=== PATIENT | female | born 1960 | race Caucasian/White ===

== ENCOUNTER 2025-03-24 00:59 | Day surgery (SDC) | payer MEDICARE, OTHER, SELFPAY ==
[2025-03-23 13:28] VITALS: BP 198/102
[2025-03-23 13:55] LABS: Hematocrit 46.0 % (37.0-47.0); Hemoglobin 14.6 g/dL (12.0-16.0); Mean Corp Hgb Conc. 31.7 g/dL (33.0-37.0); Mean Corpuscular Volume 89.8 fL (81.0-99.0); Nucleated Red Blood Cells % 0 %; Platelet Count 177 10^3/uL (130-400); Red Cell Dist. Width 14.6 % (11.5-14.5)
[2025-03-23 14:05] LABS: Urine Character Clear (Clear)
[2025-03-23 14:08] LABS: AST (SGOT) 618 U/L (14-36); Albumin 4.6 g/dl (3.5-5.0); Alkaline Phosphatase 139 U/L (38-126); Blood Urea Nitrogen 15 mg/dl (7-17); Calcium 9.9 mg/dl (8.4-10.2); Carbon Dioxide 28 mmol/L (22-30); Chloride 104 mmol/L (98-107); Glucose 114 mg/dl (70-99); Lipase 42 U/L (23-300); Potassium 4.2 mmol/L (3.5-5.1); Sodium 139 mmol/L (135-145); Total Protein 7.5 g/dl (6.3-8.2); eGFR > 60.00
[2025-03-23 14:18] LABS: ALT (SGPT) 845 U/L (0-35)
[2025-03-23 14:27] LABS: Urine Urothelial Cell 0-2 /LPF (FEW)
--- NOTE | 2025-03-23 16:02 | ED.GENMED ---
History of Present Illness
General
Chief Complaint: Abdominal Symptoms
Source: patient
Exam Limitations: none
Time Seen by Provider: 03/23/25 15:48
Nursing documentation reviewed up to this point in time: agreed with
History of Present Illness
History of Present Illness:
64 yo female w h/o C section, Aorta hematoma, L Ureterectomy 2004 presents for R flank pain starting 2 days ago radiates from flank around to the right abdomen, constant 10/10 until it suddenly relieved to now 3/10 yesterday a.m. Last evening fever
102 and has felt nauseous but no vomiting. Shes been nauseous for past month and saw PCP today and sent here as she had blood in her urine.
Past History
Past History
ED Past Medical History: Other (Hematoma aorta)
ED Past Surgical History:
Review of Systems
Review of Systems
Allergies reviewed?: Yes
All Other Systems: ROS reviewed and negative except as documented in HPI and ROS
Constitutional: Denies fever
Respiratory: Denies trouble breathing
Cardiac: Denies chest pain
ABD/GI: Reports abdominal pain and nausea; Denies vomiting or diarrhea
: Denies dysuria
Musculoskeletal: Reports no symptoms
Skin: Reports no symptoms
Neurological: Reports no symptoms
Phy Exam
Physical Exam
Physical Exam:
GENERAL: No acute distress. A&Ox3.
CONSTITUTIONAL: Afebrile.
EYES: clear, conjunctivae normal
ENMT: moist mucus membranes, Pharynx nl
RESPIRATORY: Regular respirations, nonlabored, lungs clear.
CARDIOVASCULAR: Regular rate and rhythm, no murmurs, no rubs.
GI: Soft, generally tender, more so in the right abdomen obese,, normal BS
MUSCULOSKELETAL: Moves with ease. Well perfused.
SKIN: Warm, dry, pink
PSYCH: Normal mood and affect. Well kept, interactive and appropriate
NEUROLOGIC: Awake, alert and oriented. No focal neurological deficits
Sepsis
Sepsis Screening
Sepsis Assessment: Sepsis Ruled Out
Sepsis Screen
Sepsis Screen: Sepsis Ruled Out
Date: 03/23/25
Time: 22:55
Course
Orders/Labs/Results
Orders:
Orders
03/23/25 13:44
Complete Blood Count/With Diff Urgent
Comprehensive Metabolic Panel Urgent
Lipase Urgent
Urinalysis Reflex To Culture Urgent
Date Specimen was Collected: 03/23/25
Time Specimen was Collected: 13:32
Urine Microscopic Reflex Cult Urgent
Urine Culture Urgent
BR[facility]ICK Source: U
Specimen Description:
Date Specimen was Collected: 03/23/25
Time Specimen was Collected: 13:32
03/23/25 16:02
CT Abd/pel Without Iv Or Oral Urgent
Comment:
Reason For Exam: R flank pain, hematuria
03/23/25 17:39
US Abdomen Complete/Upper Urgent
Comment:
Reason For Exam: Abdominal pain, elevated liver enzymes
03/23/25 20:40
Piperacillin/Tazo 3.375 Gram [Zosyn] 3.375 gram in 50 ml IV NOW
Abnormal Lab Results
03/23/25
13:44
MCHC 31.7 L g/dL
(33.0-37.0)
RDW 14.6 H %
(11.5-14.5)
Abs Immat Gran (auto) 0.1 H 10^3/uL
(0-0.05)
Immature Gran % 1.0 H %
(0-0.5)
Glucose 114 H mg/dl
(70-99)
AST 618 H* U/L
(14-36)
ALT 845 H* U/L
(0-35)
Alkaline Phosphatase 139 H U/L
(38-126)
Urine Ketones 3+ A
(Negative)
Ur Occult Blood Reflex 2+ A
(Negative)
Urine Nitrite (Reflex) Positive A
(Negative)
Urine Bilirubin 1+ A
(Negative)
Urine Urobilinogen 2+ A
(Neg - 1+)
Leukocyte Esterase Rfl 1+ A
(Negative)
Urine RBC 3-6 A /HPF
(0-2)
Urine Bacteria (Reflex) Few A
(Negative)
Urine Albumin (Reflex) 3+ A
(Neg - Trace)
03/23/25 13:44
03/23/25 13:44
Vital Signs
Initial and Last Documented VS:
Initial Vital Signs
Temp Pulse Resp BP Pulse Ox
99.4 F 111 20 198/102 98
03/23/25 13:28 03/23/25 13:28 03/23/25 13:28 03/23/25 13:28 03/23/25 13:28
Last Documented Vital Signs
Temp Pulse Resp BP Pulse Ox
99.4 F 111 20 156/94 94
03/23/25 13:28 03/23/25 13:28 03/23/25 13:28 03/23/25 17:19 03/23/25 17:26
MDM/Problems Addressed
Differential Diagnosis Includes:
UTI, kidney stone, pyelonephritis
Acetaminophen overuse
Cholecystitis, cholelithiasis
MDM/Problems Addressed:
64 yo female w h/o C section, Aorta hematoma, L Ureterectomy 2004 presents for R flank pain starting 2 days ago radiates from flank around to the right abdomen, constant 10/10 until it suddenly relieved to now 3/10 yesterday a.m. Last evening fever
102 and has felt nauseous but no vomiting. Shes been nauseous for past month and saw PCP today and sent here as she had blood in her urine.
She typically take Fiorecet 2-4 tablets daily (has 300 mg acetaminophen each tab) and Pamprin (500 mg acetaminophen each tab) 2-4 tablets daily for 'months' for her migraines and it helps.
CBC: Normal
CMP: Transaminitis
U/A: No WBCs, +Nitrites and +1 leukocytes, 3+ albumin
She typically take Fiorecet 2-4 tablets daily (has 300 mg acetaminophen each tab) and Pamprin (500 mg acetaminophen each tab) 2-4 tablets daily for 'months' for her migraines and it helps.
CT abdomen pelvis with IV only contrast radiology report read: IMPRESSION:
Diffuse atrophy of the left kidney. Overall, preservation of most of right renal parenchymal thickness, with a small focal scar involving the periphery of the upper to mid right kidney.
No evidence for urinary tract calculi.
Although an unenhanced examination, the gallbladder appears distended. Possible gallbladder wall thickening and/or pericholecystic edema. Findings raise concern for acute cholecystitis and please correlate clinically. As warranted, further
evaluation with abdominal ultrasound could be performed.
Hepatomegaly with diffuse fatty infiltration the liver.
Splenomegaly.
Right ovarian cystic mass with measurements slightly larger than previous pelvic ultrasound in 2018. A follow-up pelvic ultrasound is recommended.
8:15 p.m.
US radiology report reviewed: IMPRESSION:
Sonographic features suspicious for acute cholecystitis. Negative sonographic Hunt sign, though pain medication status is unknown. Clinical correlation recommended. No bile duct dilatation.
Hepatosplenomegaly. Fatty infiltration of liver.
General surgeon Dr. Mi consulted, requests admit to House provider, antibiotics, NPO p midnight
Samuel provider notified of admission
*Pulse Oximetry
SaO2: 98
Oxygen Mode of Delivery: Room air
Patient hypoxic: no
*Critical Care Note
Total Time (30-74mins, 75-104mins- exclusive of procedures): Not Applicable
ED Attending Note
-
Portions of this chart may have been created with voice recognition software.� Occasional wrong word or��sound alike� substitutions may have occurred due to the inherent limitations of voice recognition software.
Discharge Plan
Departure
Patient Disposition: Admit
Date of Disposition: 03/23/25
Time of Disposition: 20:26
Admit to: Med/Surg
Presentation/result/management discussed w/ accepting MD/DO: Shmuel
Condition: Fair
Discharge Problem:
Acute cholecystitis
Prescriptions:
No Action
ondansetron HCl [Zofran] 4 mg Tablet
4 mg PO Q6HPRN PRN (Reason: nausea)
Theragen Tablet
1 tab PO DAILY
ehdtnqylxa-hhipxxzzsobmz-hpbm 50-325-40 mg tablet
1 tab PO QIDPRN PRN (Reason: migraines)
potassium 99 mg Tablet
99 mg PO DAILY
calcium carbonate [Calcium 500] 500 mg calcium (1,250 mg) Tablet
500 mg PO DAILY
ascorbic acid (vitamin C) [Vitamin C] 500 mg Tablet
500 mg PO DAILY
valsartan 320 mg Tablet
320 mg PO DAILY
oxycodone 10 mg Tablet
10 mg PO Q6HPRN PRN (Reason: severe pains)
Referrals:
NONE,* [Active, Internal Medicine]
Interventions
Interventions:
*Risk Screen - Suicide Last Done: 03/23/25 17:25
*General Assessment Last Done: 03/23/25 17:21
*Neglect/Abuse Screening Last Done: 03/23/25 17:21
*ED- Fall Risk Assessment Last Done: 03/23/25 17:21
*ED COVID-19 Vaccine History Last Done: 03/23/25 17:21
RH-Apcgxp-Bgvhvlechk Assessment Last Done: 03/23/25 17:21
Discharge Date and Time
Print Language: LEBANESE
[2025-03-23 17:19] VITALS: BP 156/94
[2025-03-23 17:20] VITALS: BMI 49.5
[2025-03-23 20:23] VITALS: BP 167/89
[2025-03-23] MEDS: ZOSYN 50 IV (21:30)
[2025-03-24 00:48] VITALS: BP 150/95
--- NOTE | 2025-03-24 00:59 | HPS.HSE ---
Addendum entered and electronically signed by Cuauhtemoc Mi MD 03/24/25 10:39:
Correction: No RUE pain for this patient. this finding was entered in error.
Addendum entered and electronically signed by Cuauhtemoc Mi MD 03/24/25 10:36:
US and CT reviewed. CT shows distended gb with stranbding, US with tiny stones, GBWT and trace PCF.
Addendum entered and electronically signed by Cauuhtemoc Mi MD 03/24/25 10:16:
I saw and examined the patient.
The [facility]'s note was reviewed and I agree with the note.
Comment: Pain intermittently for past 3 days. Mostly c/o RUE pain at this point. US neg for DVT. She thinkgs sleeping on the arm awkwardly led to the pain, heating pad helps. In addition, ongoing RUQ/epigastric pain, improved with meds. Began
Saturday as back pain then began wrapping around the right flank. Denies changes in stool, reports dark orange urine she attributes to dehydration. Has had this pain before, about 1x monthly for the past few months. mild-mod ttp on exam to RUQ and
epigastrium. Tmax 99.4F. No leukocytosis. LFTs elevated. OCTOR for lap vs robo CCY with cholang. IV abx. NPO. DVT ppx.
Original Note:
Family Physician
-
Family Physician: Panchito Cisneros
Chief Complaint
-
Abdominal symptoms
History of Present Illness
Patient is a 64 yo female with a past medication history significant for C section, Aorta hematoma, L Ureterectomy 2004, who presents to the emergency department for right flank and right abdominal pain. Patient reported that she started to have a
migraine that started on Saturday evening around 8 pm, she took Zofran and then migraine medication with no improvement. Around 8:30 pm patient reported that pain was severe, and radiated from right flank around to the right abdomen, constant 10/10.
Patient stated she took 'a handful of pain medication at that time' which she stated included: Fioricet 2 tablets, two Oxycodone 10 mg, nine Ibuprofen 200 mg, 8 Tyler Aspirin, and 5 Pamprin, with no relief. She stated she took additional medication
throughout the night which included 3 more Fioricet and 3 more Oxycodone. She stated took another 'handful of medicine' around 3:30 am Saturday which again included: Fioricet 3 tablets, three Oxycodone 10 mg, nine Ibuprofen 200 mg, 9 Tyler Aspirin,
and 5 Pamprin. At 6 am Saturday morning the pain was suddenly relieved to now 3/10. Last evening fever 102 and has felt nauseous but no vomiting. Shes been nauseous for past month and saw PCP today and sent here as she had blood in her urine. The
patient denies any diarrhea, chest pain, or recent contact with sick individuals.
In the emergency department CBC unremarkable, CMP significant for elevated AST 618, ALT 845, alk phos 139. UA unreliable, appears to be poor specimen/contaminated.
Vital signs stable, afebrile.
Abdomen U/S showed: Sonographic features suspicious for acute cholecystitis. Negative sonographic Hunt sign, though pain medication status is unknown. Clinical correlation recommended. No bile duct dilatation. Hepatosplenomegaly. Fatty
infiltration of liver.
Abdomen/Pelvis CT showed: The gallbladder appears distended. Possible gallbladder wall thickening and/or pericholecystic edema. Findings raise concern for acute cholecystitis and please correlate clinically. Other incidental findings as noted, see
full report.
Patient received IV antibiotics, Zosyn 3.375 g IV x 1 dose in the emergency department.
ED provider, NORMAN Ramirez, reviewed with General Surgery, Dr. Mi, who is accepting the patient to his service. Plan: NPO at midnight, IV antibiotics, IV fluids, pain management and antiemetics.
Medical History
Past Medical History
Past Medical History: Reports HTN and Other (Hematoma ascending aorta, per patient believes healed, sealed itself)
Past Surgical History: Reports (1982), Tonsilectomy (1976) and Urological
Social History
Tobacco: Non-smoker
Alcohol: Occasional
Drug: None
Personal:
Living: With Family
Family History
Family History: Sudden (Patient states that father, mother and two sisters all from 'Blown out aorta')
Allergies / Home Medications
Allergies reflects when Allergies were last updated in [employer].
Home Medications with original date entered in [employer]
Allergy/Medication List:
Patient Allergies
Allergy/AdvReac Type Severity Reaction Status Date / Time
nitrofurantoin (From Allergy Unknown Unknown Verified 03/23/25 13:32
Macrobid)
Home Medications
�Medication �Instructions �Recorded
ascorbic acid (vitamin C) 500 mg 500 mg PO DAILY 03/23/25
tablet (Vitamin C)
lakhyyyjrq-ztolnguvcwexh-pupqdeoy 1 tab PO QIDPRN PRN migraines 03/23/25
50 mg-325 mg-40 mg tablet
calcium carbonate 500 mg PO DAILY 03/23/25
ondansetron HCl 4 mg tablet 4 mg PO Q6HPRN PRN nausea 03/23/25
oxycodone 10 mg tablet 10 mg PO Q6HPRN PRN severe pains 03/23/25
potassium 99 mg tablet 99 mg PO DAILY 03/23/25
therapeutic multivitamin 1 tab PO DAILY 03/23/25
valsartan 320 mg tablet 320 mg PO DAILY 03/23/25
Review of Systems
-
History Source: Patient
Constitutional: Reports Fever and Fatigue
EENT: Reports No Symptoms
Respiratory: Reports No Symptoms
Cardiac: Reports No Symptoms
Abdomen/GI: Reports Abdominal Pain (right flank radiating to right lower abdomen) and Nausea
: Reports No Symptoms
Musculoskeletal: Reports No Symptoms
Skin: Reports No Symptoms
Neurological: Reports No Symptoms
Endocrine: Reports No Symptoms
Psych: Reports No Symptoms
Physical Exam
Vital Signs
Vital Signs
Temp Pulse Resp BP Pulse Ox
99.4 F 111 20 150/95 94
03/23/25 13:28 03/23/25 13:28 03/23/25 13:28 03/24/25 00:48 03/23/25 17:26
Physical Exam
General: No Apparent Distress, Comfortable, Conversant and Pain (right abdominal pain, rates at 2 out of 10 after pain medications)
HEENT: NormoCephalic, Moist mucous membranes and PERRLA
Respiratory: Clear and Non Labored Respirations
Cardiac: S1/S2 and Regular Rhythm
GI: Soft and Tender (t/o lower abdomen w/palpation)
Musculoskeletal: No Edema
Skin: Warm and Dry; No Jaundice
Neuro: Awake, Alert, Oriented and Cranial Nerves Intact
Psych: Calm and Intact Judgment/Insight
Laboratory Results
-
03/23/25 13:44
03/23/25 13:44
Laboratory Results
Total Bilirubin 0.8 mg/dl (0.2-1.3) 03/23/25 13:44
AST 618 U/L (14-36) H* 03/23/25 13:44
ALT 845 U/L (0-35) H* 03/23/25 13:44
Alkaline Phosphatase 139 U/L (38-126) H 03/23/25 13:44
Lipase 42 U/L (23-300) 03/23/25 13:44
Data Reviewed
-
CT Scan: Report Reviewed by me
Ultrasound: Report Reviewed by me
Lab Data: Labs Reviewed by me
Impression/Plan
-
IMPRESSION:
Patient is a 64 yo female with a past medication history significant for C section, Aorta hematoma, L Ureterectomy 2004, who presents to the emergency department for right flank and right abdominal pain.
PLAN:
Acute cholecystitis
-Admit to General Surgery, Med Surg under the service of Dr. Mi
-Abdomen U/S showed: Sonographic features suspicious for acute cholecystitis. Negative sonographic Hunt sign, though pain medication status is unknown. Clinical correlation recommended. No bile duct dilatation. Hepatosplenomegaly. Fatty
infiltration of liver.
-Abdomen/Pelvis CT showed: The gallbladder appears distended. Possible gallbladder wall thickening and/or pericholecystic edema. Findings raise concern for acute cholecystitis and please correlate clinically. Other incidental findings as noted, see
full report.
-NPO until seen by surgery, IV fluids NSS @ 75 mls/hr
-IV antibiotics: Continued Zosyn 3.375 mg Q6H.
-Pain medication: Dilaudid
-Antiemetics: Zofran
Hypertension
-Continue home medications: Valsartan 320 mg PO daily
Elevated LFT's
-Repeat CMP, consider GI consult if remain elevated
DVT prophylaxis: SCD's
Code status: Full code
[2025-03-24 02:26] VITALS: BP 166/96
[2025-03-24 02:27] VITALS: BMI 48.4
[2025-03-24] MEDS: ZOFRAN 4 MG IV ×3 (02:54→20:24)
[2025-03-24] MEDS: DILAUDID 1 MG IV (02:58)
[2025-03-24] MEDS: LR 1000 IV ×2 (02:58→18:37)
[2025-03-24 06:44] LABS: Hematocrit 42.0 % (37.0-47.0); Hemoglobin 13.3 g/dL (12.0-16.0); Mean Corp Hgb Conc. 31.7 g/dL (33.0-37.0); Mean Corpuscular Volume 90.1 fL (81.0-99.0); Platelet Count 164 10^3/uL (130-400); Red Cell Dist. Width 14.7 % (11.5-14.5)
[2025-03-24 06:52] LABS: INR 0.99; PT 13.6 Sec (11.4-14.6)
[2025-03-24 07:14] LABS: ALT (SGPT) 549 U/L (0-35); AST (SGOT) 266 U/L (14-36); Albumin 4.0 g/dl (3.5-5.0); Alkaline Phosphatase 106 U/L (38-126); Blood Urea Nitrogen 17 mg/dl (7-17); Calcium 9.2 mg/dl (8.4-10.2); Carbon Dioxide 25 mmol/L (22-30); Chloride 107 mmol/L (98-107); Estimated Creatinine Clearance 102 ml/min; Glucose 106 mg/dl (70-99); Potassium 4.0 mmol/L (3.5-5.1); Sodium 141 mmol/L (135-145); Total Protein 6.7 g/dl (6.3-8.2); eGFR > 60.00
[2025-03-24 07:25] VITALS: BP 137/81
[2025-03-24] MEDS: DILAUDID 0.5 MG IV ×2 (09:20→20:24)
--- NOTE | 2025-03-24 11:27 | CM ---
Reviewed the chart notes and spoke with the patient at the bedside. The patient anticipates going to the OR this afternoon for lap nancy. The patient resides with her spouse in a two story home with one step to enter. The patient has a rolling
walker and shower stool. The patient reports no VN or SNF in the past. The patient confirmed her pharmacy of choice is [facility]. CM continues to be available to patient/family and is monitoring medical plan for needs at discharge.
Plan: Discharge to home when medically stable. No needs anticipated at this time.
--- NOTE | 2025-03-24 12:56 | PTCARENOTE ---
pt provided this RN with a list of medications she can't tolerate. provided medication list added to adverse reactions as instructed by pharmacist.
[2025-03-24] MEDS: ZOSYN 50 IV ×3 (13:21→23:21)
[2025-03-24 15:20] VITALS: BP 144/91
--- NOTE | 2025-03-24 17:10 | PTCARENOTE ---
received message from surgeon-OR cancelled for today and rescheduled for AM. pt made aware and instructed clear liquids allowed until MN and then NPO for OR in am. pt verbalized understanding.
[2025-03-24] MEDS: LOVENOX 40 MG SC (18:36)
[2025-03-24] MEDS: DIOVAN PO (21:11)
[2025-03-24 23:04] VITALS: BP 156/89
[2025-03-24] MEDS: DIOVAN 320 MG PO (23:39)
[2025-03-25] VITALS (15 sets, daily range): BP systolic 117–172; BP diastolic 61–98
[2025-03-25] MEDS: ZOSYN 50 IV ×4 (05:13→23:43)
[2025-03-25] MEDS: DILAUDID 1 MG IV ×2 (06:35→16:20)
[2025-03-25] MEDS: ZOFRAN 4 MG IV ×2 (06:40→22:46)
--- NOTE | 2025-03-25 11:30 | PTCARENOTE ---
Pt was prepared for transport to go to the pre operative suite. In the hallway, pt noticed the transporter had a light scented body spray on. Pt had what appeared to be a panic attack. Pt started breathing heavy and started to cry. This nurse was
able to talk pt through slow, deep breaths, and able to calm Pt down within minutes. Pt's pulse ox remained at 96%RA. This nurse took over the transport to the Preop area. Pt remained calm with adequate consistent breathing on room air.
--- NOTE | 2025-03-25 11:46 | W.SUR.PREOP ---
Pre-Operative Surgical Note
-
I have examined this patient prior to the performance of the scheduled procedure.
The patient's condition is unchanged from the time of the current History and
Physical and the patient is able to undergo the scheduled procedure.
--- NOTE | 2025-03-25 13:12 | CM ---
Patient currently in the Operating Room; Case Management will monitor for discharge needs and support accordingly
--- NOTE | 2025-03-25 14:09 | W.IMMPOSTOP ---
Addendum entered and electronically signed by Mina Ordaz MD 03/25/25 14:26:
#[id number]
Original Note:
Surgical Immed Post Op Note
-
Primary Surgeon: Mina Ordaz MD
Assisting Surgeon: Celestina Wolf PA-C
Pre-op Diagnosis: Acute calculus cholecystitis
Post-op Diagnosis: Acute calculus cholecystitis
Procedure Performed: Laparoscopic cholecystectomy with intraoperative cholangiogram; modifier 22 secondary to morbid obesity with a BMI of 48.4
Anesthesia Type: GETA +0.25% Marcaine with epi
Specimen / Cultures: Gallbladder
Estimated Blood Loss: 8 mL
Complications: None immediate
Operative Findings: Diffuse fatty infiltration of the liver and significant hepatomegaly as well as patient's morbid obesity with BMI 48.4 significantly contributed to increased complexity of surgery lengthening operative time by 50% or more over
typical operative circumstances.
Gallbladder distended, access needle decompression. Thick bile and gravel like stones. Cystic artery anterior branch and posterior branches individually identified and controlled with clips. Intraoperative cholangiogram with initial delay
emptying into the duodenum but no filling defects identified. Cholangiocatheter fed via the cystic duct through common bile duct and passed the ampulla without resistance and repeat cholangiogram without delay.
Cystic duct divided with Endo RAYO 30 mm mehta stapler.
The assistance of Celestina Wolf PA-C was required due to the complexity of the procedure. During the procedure Celestina Wolf PA-C assisted with port placement, gallbladder/liver retraction and managing the laparoscope for visualization assistance
with, and closure of the surgical incision sites. I was present for the entirety of the operative procedure.
[2025-03-25] MEDS: DILAUDID 0.25 MG IV ×2 (14:47→15:12)
[2025-03-25] MEDS: COMPAZINE 5 MG IV (14:57)
--- NOTE | 2025-03-25 15:55 | PTCARENOTE ---
Pt received from the PACU via bed. Transport was w/o incident. Pt is Drowsy and easily arousable. Pt reports pain as moderate at this time and denies nausea. Pt's abd with 4 Lap sites and 1 sm. poke site, all well approximated w/ surgical glue. Ice
pack applied to abd as ordered for comfort. Vss, pt is afebrile. Pt and Pt's instructed on plan of care. Both Pt and verbalized understanding of instructions. Call kenney is within reach.
[2025-03-25] MEDS: LR 1000 IV (16:24)
[2025-03-25] MEDS: LOVENOX 40 MG SC (17:37)
[2025-03-25] MEDS: DILAUDID 0.5 MG IV ×2 (20:31→23:44)
[2025-03-25] MEDS: DIOVAN 320 MG PO (21:15)
[2025-03-25] MEDS: BENADRYL 25 MG PO (23:13)
[2025-03-25] MEDS: ROBITUSSIN DM 5 ML PO (23:15)
[2025-03-26 03:52] VITALS: BP 145/79
[2025-03-26] MEDS: ZOSYN 50 IV (05:49)
[2025-03-26] MEDS: DILAUDID 0.5 MG IV (05:49)
[2025-03-26 07:40] VITALS: BP 140/79
--- NOTE | 2025-03-26 10:23 | CM ---
Reviewed the chart notes. Patient's status changed to post surgical recovery. CM continues to be available to patient/family and is monitoring medical plan for needs at discharge.
Plan: Discharge to home when medically stable. No needs anticipated at this time.
[2025-03-26] MEDS: ROXICODONE 10 MG PO (10:26)
--- NOTE | 2025-03-26 10:49 | W.PN.GS2 ---
Today's Communication / Plan
-
DC home
Assessment / Plan
-
Assessment: 64-year-old female POD #1 status post lap nancy with intraoperative cholangiogram for acute calculus cholecystitis and possible passed gallstone/sludge.
AFVSS
Doing well postop
Plan: Stable for discharge home
Postoperative discharge instructions reviewed
Patient has narcotic supply at home for oxycodone but requested alternative for postoperative pain management. Advised that would provide tramadol 50 mg tablets x 10 with no refills.
Subjective Data
-
Date of Service: March 26, 2025
Patient seen and examined. at bedside.
Postoperative incisional pain controlled.
Tolerating dietary advancement, no further nausea. No vomiting
Objective Data
-
Intake and Output
03/25/25 03/26/25 03/27/25
06:59 06:59 06:59
Intake Total 1165 / 1165 730 / 730
Balance 1165 / 1165 730 / 730
Intake:
Oral fluids 240 / 240 480 / 480
IV fluids (Total) 825 / 825 150 / 150
normosol 150 / 150
IV piggybacks 100 / 100 100 / 100
Other:
Number of approximated MODERATE 1 3 2
amounts of urine
Vital Signs
Temp Pulse Resp BP Pulse Ox
98.7 F 96 20 140/79 91
03/26/25 07:40 03/26/25 07:40 03/26/25 07:40 03/26/25 07:40 03/26/25 07:40
Lab Results
03/24/25 06:20
03/24/25 06:20
Calcium 9.2 mg/dl (8.4-10.2) 03/24/25 06:20
Total Bilirubin 0.7 mg/dl (0.2-1.3) 03/24/25 06:20
AST 266 U/L (14-36) H 03/24/25 06:20
ALT 549 U/L (0-35) H* 03/24/25 06:20
Alkaline Phosphatase 106 U/L (38-126) 03/24/25 06:20
Total Protein 6.7 g/dl (6.3-8.2) 03/24/25 06:20
Albumin 4.0 g/dl (3.5-5.0) 03/24/25 06:20
Physical Exam
-
NAD AAO x 3
ABD: Soft, obese, mild tenderness palpation at incision sites.
Incisions with glue dressings and some localized ecchymosis. No hematoma.
--- NOTE | 2025-03-26 10:52 | W.DS.TRANS ---
DC Summary - Real Estate Administrator
-
Discharge Instructions:
Diet As tolerated
Additional Diets Eat small meals at first as distention is common
. If you have loose stools after surgery, follow
a low fat diet.
Activity No strenuous activity
Additional Activity Do not lift over 20lbs for 3-4 weeks after
surgery
Bathing Restrictions OK to Shower
Wound Care Glue at surgical sites typically peels off in 2
to 3 weeks
Instructions:
Stand-Alone Forms:
Changes to Home Medications: No
Discharge Medications:
DC Medications w/original date entered in [employer]
ascorbic acid (vitamin C) 500 mg tablet (Vitamin C) 500 mg PO DAILY 03/23/25
hiribgmpuc-nnqcuiwdsuwut-xialcker 50 mg-325 mg-40 mg tablet 1 tab PO QIDPRN PRN migraines 03/23/25
calcium carbonate 500 mg PO DAILY 03/23/25
ondansetron HCl 4 mg tablet 4 mg PO Q6HPRN PRN nausea 03/23/25
oxycodone 10 mg tablet 10 mg PO Q6HPRN PRN severe pains 03/23/25
potassium 99 mg tablet 99 mg PO DAILY 03/23/25
therapeutic multivitamin 1 tab PO DAILY 03/23/25
valsartan 320 mg tablet 320 mg PO DAILY 03/23/25
acetylcarnitine HCl 250 mg capsule 1,000 mg PO DAILY 03/24/25
berberine chloride 500 mg capsule 1,000 mg PO DAILY 03/24/25
calc 166.6 mg-D3 4.15 mcg-mag ox 83.3 mg-ascorbate calc-K2-min capsule (BoneUp (calcium ascorbate)) 1 cap PO DAILY 03/24/25
lactoferrin 250 mg capsule 250 mg PO DAILY 03/24/25
milk thistle 500 mg capsule 1,000 mg PO DAILY 03/24/25
selenium 200 mcg capsule 200 mcg PO DAILY 03/24/25
taurine 1,000 mg capsule 1,000 mg PO DAILY 03/24/25
vitamin A 3,000 mcg (10,000 unit) capsule 3,000 mcg PO DAILY 03/24/25
vitamin B complex 1 tab PO DAILY 03/24/25
vitamin E 670 mg (1,000 unit) capsule 670 mg PO DAILY 03/24/25
gotu khai (Centella asiatica) 475 mg capsule 475 mg PO DAILY 03/25/25
procyanidolic oligomers 50 mg capsule 100 mg PO DAILY 03/25/25
Home Medication Changes
Pending Results: No
[2025-03-26 11:21] VITALS: BP 144/84
[2025-03-26] MEDS: ZOSYN IV (11:30)
== END 2025-03-26 13:04 | disposition home or self-care (01) ==
LOC: SDS 00:59
PROVIDERS: Emergency Medicine; Nurse Practitioner Family; ATTENDING PHYSICIAN Surgery; EMERGENCY PHYSICIAN Emergency Medicine; FAMILY PHYSICIAN Family Medicine
DX: K80.00 Calculus of gallbladder with acute cholecystitis without obstruction (principal); E66.01 Morbid (severe) obesity due to excess calories; Z68.42 Body mass index [BMI] 45.0-49.9, adult
CPT/HCPCS: 47563; 74176; 74300; 76000; 76700; 80053; 81003; 81015; 83690; 85025; 85027; 85610; 87086; 88304; 93005; 96365; 99285

== ENCOUNTER → 2025-05-10 13:17 | Outpatient (REF) | payer MEDICARE, OTHER, SELFPAY | LOC: RAD 13:17 | PROVIDERS: ATTENDING PHYSICIAN Surgery; FAMILY PHYSICIAN Family Medicine; REFERRING PHYSICIAN Obstetrics & Gynecology | DX: N83.201 Unspecified ovarian cyst, right side (principal) | CPT/HCPCS: 76830; 76856 ==